=== PATIENT | female | born 1980 | race Hispanic/Latino ===

== ENCOUNTER 2018-08-02 09:19 | Emergency (ER) | payer OTHER ==
[~2018-08-02] VITALS: Ht 160 cm; Wt 82.3 kg
[2018-08-02] MEDS ORDERED: LIDOCAINE 1% SDV 5 ML VIAL DILUENT ONE (10:45)
[2018-08-02] MEDS ORDERED: cefTRIAXone SOD 1 GM VIAL (J0696) IM ONE (10:45)
[2018-08-02] MEDS ORDERED: NEOSPORIN OINT 0.9 GM PKT (FLOOR STOCK) As Ordered ONE (10:57)
[2018-08-02 11:26] VITALS: BP 120/82
[2018-08-02] MEDS ORDERED: AUGM875T28 PO (11:28)
[2018-08-02] MEDS ORDERED: ACETAMINOPHEN 325 MG TAB PO ONE (11:30)
--- NOTE | 2018-08-02 11:50 | REP ---
LEFT HAND, FOUR VIEWS: HISTORY: Dog bite. There is no acute fracture or dislocation. The joint spaces are normal in appearance. IMPRESSION: There is no acute fracture or dislocation. Electronically Signed by Vj Garcia MD 08/02/2018 12:11 P
--- NOTE | 2018-08-02 11:51 | REP ---
LEFT FOREARM, TWO VIEWS: HISTORY: Dog bite. There is no acute fracture or dislocation. The joint spaces are normal in appearance. IMPRESSION: There is no acute fracture or dislocation. Electronically Signed by Vj Garcia MD 08/02/2018 12:11 P
== END 2018-08-02 11:35 | disposition home or self-care (01) ==
LOC: M ED 09:19
DX: S51.832A Puncture wound without foreign body of left forearm, initial encounter (principal); S61.432A Puncture wound without foreign body of left hand, initial encounter; S60.512A Abrasion of left hand, initial encounter; S60.511A Abrasion of right hand, initial encounter; W54.0XXA Bitten by dog, initial encounter; Y92.89 Other specified places as the place of occurrence of the external cause
CPT/HCPCS: 73090; 73130; 96372; 99284; J0696